=== PATIENT | female | born 1955 | race American Indian/Alaskan Native ===

== ENCOUNTER 2019-02-07 07:59 | Emergency (ER) | payer SELFPAY ==
[2019-02-07 08:12] VITALS: BP 174/86
--- NOTE | 2019-02-07 08:57 | Emergency Department Report ---
HPI - General Chief Complaint: Back Pain/Injury Time Seen by Provider: 02/07/19 08:29 - HPI HPI: 63-year-old female presents to the emergency department with a complaint of a 3 day history of some right-sided back pain. It is an aching p ain with some spasms. She denies any fall or recent trauma. She denies any problems with bowel or bladder, numbness or paresthesias or any neurological deficits. She has a history of remote breast cancer and [id number] diabetes. No family or care physician as she just moved here from [place] a few months ago. She took an 800 mg ibuprofen with some transient relief. ED Past Medical Hx - Past Medical History Previous Medical History?: Yes Hx Diabetes: Yes Hx of Cancer: Yes (BREAST) - Surgical History Additional Surgical History: BILATERAL BREAST REMOVAL - Social History Smoking Status: Current Every Day Smoker Substance Use Type: Alcohol - Medications Home Medications: Home Medications Medication Instructions Recorded Confirmed Last Taken Type HYDROcodone/APAP 5-325 [[place] 1 each PO Q6HR PRN #10 tablet 02/07/19 Unknown Rx 5/325] ED Review of Systems ROS: Stated complaint: BACK PAIN ON R SIDE Other details as noted in HPI Comment: All other systems reviewed and negative Constitutional: denies: chills, fever, weakness Cardiovascular: denies: chest pain, palpitations Gastrointestinal: denies: abdominal pain, vomiting Genitourinary: denies: dysuria, discharge Musculoskeletal: back pain. denies: joint swelling Skin: denies: rash Neurological: denies: numbness, paresthesias Physical Exam - Physical Exam Vital Signs: Vital Signs 02/07/19 08:09 Temperature 98.7 F Pulse Rate 90 Respiratory 16 Rate Blood Pressure 174/86 O2 Sat by Pulse 98 Oximetry Physical Exam: GENERAL: The patient is well-developed well-nourished. HENT: Normocephalic. Atraumatic. Patient has moist mucous membranes. EYES: Extraocular motions are intact. NECK: Supple. Trachea is midline. CHEST/LUNGS: Clear to auscultation. There is no respiratory distress noted. HEART/CARDIOVASCULAR: Regular. There is no tachycardia. There is no murmur. ABDOMEN: Abdomen is soft, nontender. Patient has normal bowel sounds. There is no abdominal distention. SKIN: Skin is warm and dry. NEURO: The patient is awake, alert, and oriented. The patient is cooperative. The patient has no focal neurologic deficits. The patient has normal speech. MUSCULOSKELETAL: There is no tenderness or deformity. There is no evidence of acute injury. Muscle strength 5 out of 5 upper and lower extremity bilaterally. BACK: No midline thoracic or lumbar tenderness to palpation, step-off or deformity. There is some reproducible right-sided paraspinal back pain to the mid to lower thoracic, and lumbar regions. ED Course Vital Signs 02/07/19 08:09 Temperature 98.7 F Pulse Rate 90 Respiratory 16 Rate Blood Pressure 174/86 O2 Sat by Pulse 98 Oximetry ED Medical Decision Making - Lab Data Result diagrams: 02/07/19 09:08 - Medical Decision Making 3 day history of right-sided back pain that is atraumatic. Metabolic panel does not show any electrolyte abnormalities or hypoglycemia or renal insufficiency. Urinalysis does not show any UTI, hematuria. She does not have any problems with bowel or bladder, numbness or paresthesia or any neurological deficits. The pain is reproducible to palpation. She appears low suspicion for any of the emergent condition such as cauda equina, epidural abscess or cord compression syndrome. Her pain is not midline. She's been given a referral for orthopedists and some pain medication. She will return to the ER with any worsening of her symptoms or any acute distress. - Differential Diagnosis muscle spasm, contusion, nephrolithiasis, pyonephritis Critical Care Time: No Critical care attestation.: If time is entered above; I have spent that time in minutes in the direct care of this critically ill patient, excluding procedure time. ED Disposition Clinical Impression: Elevated blood pressure reading Back pain Qualifiers: Chronicity: unspecified Back pain laterality: right Sciatica presence: without sciatica Disposition: DC-01 TO HOME OR SELFCARE Is pt being admited?: No Condition: Stable Instructions: Back Pain (ED) Additional Instructions: Please follow up with a primary care physician in the next few days. I am also giving him a referral for a local orthopedist, Dr. Christianson, to follow up cutting her back pain. Return to the emergency Department with any worsening of your symptoms or any acute distress. You have been prescribed a medication that is sedating and therefore should not be taken prior to driving, working, and responsible for children and in no way should be mixed with alcohol of any quantity. Prescriptions: HYDROcodone/APAP 5-325 [[place] 5/325] 1 each PO Q6HR PRN #10 tablet PRN Reason: Pain Referrals: [facility] [Outside] - 2-3 Days KIARRA CROWE DO [Staff Physician] - 2-3 Days CHRISSY CHRISTIANSON MD [Staff Physician] - 2-3 Days Forms: Work/School Release Form(ED)
[2019-02-07 09:43] LABS: BUN/Creatinine Ratio 20; Blood Urea Nitrogen 12 mg/dL (7-17); Calcium 9.4 mg/dL (8.4-10.2); Hemolysis Index 6
[2019-02-07 09:48] LABS: Bilirubin,Urine NEG (Negative); Blood,Urine NEG (Negative); Color,Urine Yellow (Yellow); Mucus,Urine FEW /HPF; Protein,Urine <15 mg/dL mg/dL (Negative); Urobilinogen,Urine < 2.0 mg/dL (<2.0); WBC,Urine < 1.0 /HPF (0.0-6.0)
[2019-02-07] MEDS ORDERED: TORADOL IM ONE (09:55)
== END 2019-02-07 10:20 | disposition home or self-care (01) ==
LOC: ED 07:59
DX: M54.9 Dorsalgia, unspecified (principal); I10 Essential (primary) hypertension; F17.200 Nicotine dependence, unspecified, uncomplicated; E11.9 Type 2 diabetes mellitus without complications; Z88.8 Allergy status to other drugs, medicaments and biological substances; Z85.3 Personal history of malignant neoplasm of breast; Z98.890 Other specified postprocedural states
CPT/HCPCS: 36415; 80048; 81001; 82962; 96372; 99283; J1885